=== PATIENT | male | born 1990 | race Asian ===

== ENCOUNTER 2018-01-15 21:42 | Emergency (ER) | payer SELFPAY ==
[~2018-01-15] VITALS: Ht 175.3 cm; Wt 63.5 kg
[2018-01-15 21:44] VITALS: Ht 175.3 cm; Wt 63.5 kg
[2018-01-16 00:39] VITALS: BP 129/80
== END 2018-01-16 00:39 | disposition home or self-care (01) ==
LOC: ED 21:42
DX: S61.411A Laceration without foreign body of right hand, initial encounter (principal); W45.8XXA Other foreign body or object entering through skin, initial encounter; Y93.89 Activity, other specified; Y92.89 Other specified places as the place of occurrence of the external cause; Y99.8 Other external cause status
CPT/HCPCS: 90715; J2001

== ENCOUNTER 2018-01-17 17:41 | Emergency (ER) | payer SELFPAY ==
[2018-01-17 19:15] VITALS: BP 118/34
== END 2018-01-17 19:15 | disposition home or self-care (01) ==
LOC: ED 17:41
DX: S61.411D Laceration without foreign body of right hand, subsequent encounter (principal); X58.XXXD Exposure to other specified factors, subsequent encounter